=== PATIENT | male | born 1975 | race Hispanic/Latino ===

== ENCOUNTER 2020-11-11 20:45 | Emergency (ER) | payer MEDICARE, BC ==
[~2020-11-11] VITALS: Ht 170.2 cm; Wt 77.1 kg
[2020-11-11] MEDS ORDERED: FAMOTIDINE 20 MG TAB PO ONE (21:30)
[2020-11-11] MEDS ORDERED: METHYLPREDNISOLONE SOD SUCC 125 MG/2ML VIAL IM ONE (21:30)
== END 2020-11-11 22:08 | disposition home or self-care (01) ==
LOC: ER 20:49
DX: T63.421A Toxic effect of venom of ants, accidental (unintentional), initial encounter (principal); T78.40XA Allergy, unspecified, initial encounter; M79.7 Fibromyalgia; F32.9 Major depressive disorder, single episode, unspecified; Z98.0 Intestinal bypass and anastomosis status
CPT/HCPCS: 99282; J2930